=== PATIENT | female | born 1965 | race Caucasian/White ===

== ENCOUNTER 2025-04-10 06:17 | Day surgery (SDC) | payer BC, SELFPAY | END 2025-04-10 12:44 | disposition home or self-care (01) | LOC: GI 06:17 | PROVIDERS: ATTENDING PHYSICIAN Specialist | DX: K29.50 Unspecified chronic gastritis without bleeding (principal); R12 Heartburn; K90.0 Celiac disease; K22.2 Esophageal obstruction; K31.89 Other diseases of stomach and duodenum; K31.7 Polyp of stomach and duodenum; K20.80 Other esophagitis without bleeding | CPT/HCPCS: 43239; 88305; 88342 ==